=== PATIENT | male | born 1990 | race American Indian/Alaskan Native ===

== ENCOUNTER 2020-09-22 13:29 | Emergency (ER) | payer SELFPAY ==
[2020-09-22 13:45] VITALS: BP 155/103
[2020-09-22] MEDS ORDERED: IBUPROFEN 600 MG TAB PO ONE (14:58)
--- NOTE | 2020-09-22 14:59 | Emergency Department Report ---
ED Fall HPI - General Chief Complaint: Back Pain/Injury Stated Complaint: BACK/HIP PAIN Time Seen by Provider: 09/22/20 14:48 Source: patient Mode of arrival: Ambulatory - History of Present Illness Initial Comments: 30-year-old male presents to the ER today with complaints of low back pain and left hip pain. He states that this incident occurred at work today. Patient states that he was carrying boxes of fries while walking on plastic pallets when welding caved in causing him to lose his balance and fall. Patient states that he fell onto his left hip. He states that he has been having pain in the left hip and lower back since the fall. It is worse with ambulation, and movement. He denies any radiation of the pain. He denies any bowel or bladder incontinence. He denies any associate abdominal pain, lower extremity numbness, tingling or weakness. Denies any saddle anesthesia. he denies head injury. He denies any other symptoms at this time. MD Complaint: fall -: Sudden (today at work ) - Related Data Previous Rx's Medication Instructions Recorded Last Taken Type Ibuprofen [Motrin] 800 mg PO Q8HR PRN #30 tablet 09/22/20 Unknown Rx methOCARBAMOL [Robaxin TAB] 750 mg PO Q8H PRN #30 tablet 09/22/20 Unknown Rx Allergies Allergy/AdvReac Type Severity Reaction Status Date / Time No Known Allergies Allergy Unverified 09/22/20 13:42 ED Review of Systems ROS: Stated complaint: BACK/HIP PAIN Other details as noted in HPI Comment: All other systems reviewed and negative Constitutional: no symptoms reported Eyes: as per HPI. denies: eye discharge, vision change ENT: denies: ear pain, throat pain Respiratory: denies: cough, shortness of breath, wheezing Cardiovascular: denies: chest pain, palpitations Endocrine: no symptoms reported Gastrointestinal: denies: abdominal pain, nausea, vomiting, diarrhea, constipation, hematemesis, hematochezia Musculoskeletal: back pain, arthralgia Skin: denies: rash, lesions Neurological: denies: headache, weakness, numbness, paresthesias, confusion, abnormal gait Psychiatric: denies: anxiety, depression, auditory hallucinations, visual hallucinations, homicidal thoughts ED Past Medical Hx - Past Medical History Previous Medical History?: No - Surgical History Past Surgical History?: No - Medications Home Medications: Home Medications Medication Instructions Recorded Confirmed Last Taken Type Ibuprofen [Motrin] 800 mg PO Q8HR PRN #30 tablet 09/22/20 Unknown Rx methOCARBAMOL [Robaxin TAB] 750 mg PO Q8H PRN #30 tablet 09/22/20 Unknown Rx ED Physical Exam - General Limitations: No Limitations General appearance: alert, in no apparent distress - Head Head exam: Present: atraumatic, normocephalic, normal inspection - Eye Eye exam: Present: normal appearance, PERRL, EOMI Pupils: Present: normal accommodation - Respiratory Respiratory exam: Present: normal lung sounds bilaterally. Absent: respiratory distress - Cardiovascular Cardiovascular Exam: Present: regular rate, normal rhythm, normal heart sounds - GI/Abdominal GI/Abdominal exam: Present: soft. Absent: distended, tenderness, guarding - Expanded Lower Extremity Exam Left Hip exam: Present: normal inspection, full ROM, tenderness (Mild posterior left hip ). Absent: swelling, abrasion, laceration, ecchymosis, deformity, crepidus, dislocation, erythema, external rotation, internal rotation, shortening, pelvic stability - Back Exam Back exam: Present: normal inspection, full ROM, tenderness, paraspinal tenderness, vertebral tenderness. Absent: CVA tenderness (R), CVA tenderness (L), muscle spasm, rash noted - Neurological Exam Neurological exam: Present: alert, oriented X3, CN II-XII intact, normal gait. Absent: motor sensory deficit - Psychiatric Psychiatric exam: Present: normal affect, normal mood - Skin Skin exam: Present: intact ED Course Vital Signs 09/22/20 09/22/20 13:42 15:18 Temperature 98.1 F Pulse Rate 87 Respiratory 18 18 Rate Blood Pressure 155/103 O2 Sat by Pulse 99 Oximetry ED Medical Decision Making - Radiology Data Radiology results: report reviewed Patient: LALO ORTIZ MR#: [id number] : 1990 Acct:[id number] Age/Sex: 30 / M ADM Date: 09/22/20 Loc: ED Attending Dr: Ordering Physician: LAY ARDON Date of Service: 09/22/20 Procedure(s): XR hip 2-3V LT Accession Number(s): [id number] cc: LAY ARDON Fluoro Time In Minutes: LEFT HIP 2 VIEW(S) INDICATION / CLINICAL INFORMATION: Fall/hip pain COMPARISON: None available. FINDINGS: BONES / JOINT(S): No acute fracture or subluxation. No significant arthritis. SOFT TISSUES: No significant abnormality. ADDITIONAL FINDINGS: None. LUMBAR SPINE 3 VIEWS INDICATION / CLINICAL INFORMATION: Fall/hip pain. COMPARISON: None available. FINDINGS: VERTEBRAE: No acute fracture. No significant malalignment. DISC SPACES / FACET JOINTS:No significant abnormality. PARASPINAL SOFT TISSUES:No significant abnormality. ADDITIONAL FINDINGS: None. Signer Name: Fay Barragan MD Signed: 09/22/2020 4:05 PM Workstation Name: [id number] Transcribed By: Dictated By: FAY BARRAGAN III Electronically Authenticated By: FAY BARRAGAN III Signed Date/Time: 09/22/201604 DD/ 02 TD/TT: - Medical Decision Making 1645: Xray of lumbar spine and hip shows nothing acute. Went to discuss x-ray results and discharge instructions with patient but he was not in the room. As ked the nurse about patient but they were not aware that he was not in the room. It has been about 40 minutes and still unable to locate patient. Nursing staff will continue to monitor to see if patient returns. Otherwise patient will be marked as eloped. Critical care attestation.: If time is entered above; I have spent that time in minutes in the direct care of this critically ill patient, excluding procedure time. ED Disposition Clinical Impression: Lumbar strain, Contusion of hip, left Disposition: DC-01 TO HOME OR SELFCARE Is pt being admited?: No Does the pt Need Aspirin: No Condition: Stable Instructions: Contusion, [id number], Lumbar Strain Additional Instructions: Take the motrin and muscle relaxer as prescribed. Follow up with PCP and or Materials Development Engineer in 1-2 weeks if symptoms not better. Return to ED if worse. Prescriptions: Ibuprofen [Motrin] 800 mg PO Q8HR PRN #30 tablet PRN Reason: Pain methOCARBAMOL [Robaxin TAB] 750 mg PO Q8H PRN #30 tablet PRN Reason: Muscle Spasm Referrals: HOLLAND REED MD [Staff Physician] - 3-5 Days FAY JIMENEZ MD [Staff Physician] - 3-5 Days Forms: Work/School Release Form(ED) Time of Disposition: 16:22
--- NOTE | 2020-09-22 16:10 | XRay Report ---
LEFT HIP 2 VIEW(S) INDICATION / CLINICAL INFORMATION: Fall/hip pain COMPARISON: None available. FINDINGS: BONES / JOINT(S): No acute fracture or subluxation. No significant arthritis. SOFT TISSUES: No significant abnormality. ADDITIONAL FINDINGS: None. LUMBAR SPINE 3 VIEWS INDICATION / CLINICAL INFORMATION: Fall/hip pain. COMPARISON: None available. FINDINGS: VERTEBRAE: No acute fracture. No significant malalignment. DISC SPACES / FACET JOINTS:No significant abnormality. PARASPINAL SOFT TISSUES:No significant abnormality. ADDITIONAL FINDINGS: None. Signer Name: Ayo Barragan MD Signed: 09/22/2020 4:05 PM Workstation Name: [id number]
== END 2020-09-22 17:50 | disposition home or self-care (01) ==
LOC: ED 13:29
DX: S70.02XA Contusion of left hip, initial encounter (principal); S39.012A Strain of muscle, fascia and tendon of lower back, initial encounter; Z79.899 Other long term (current) drug therapy; W18.30XA Fall on same level, unspecified, initial encounter; Y93.89 Activity, other specified; Y92.89 Other specified places as the place of occurrence of the external cause; Y99.0 Civilian activity done for income or pay
CPT/HCPCS: 72100